=== PATIENT | female | born 1965 | race Caucasian/White ===

== ENCOUNTER 2021-11-13 13:12 | Emergency (ER) | payer MEDICAID, SELFPAY ==
[~2021-11-13] VITALS: Ht 165.1 cm; Wt 66.7 kg
[2021-11-13 13:12] VITALS: BP_SYST 134
--- NOTE | 2021-11-13 13:20 | NUR ---
Patient triaged and placed in waiting room. VSS and patient appears in no acute distress at this time. Accompanied by SELF, awaiting available bed, and MD notified of need for MSE.
--- NOTE | 2021-11-13 14:25 | NUR ---
DR ANNE OUT TO TRIAGE ROOM TO EVALUATE PT.
[2021-11-13] MEDS ORDERED: IBUP-1969 PO (15:33)
[2021-11-13] MEDS ORDERED: ACET325T53 PO (15:33)
--- NOTE | 2021-11-13 17:01 | NUR ---
SLING PLACED ORDERED
--- NOTE | 2021-11-13 17:10 | NUR ---
DR ANNE OUT TO TRIAGE ROOM TO SPEAK WITH PT RE: [id number]
--- NOTE | 2021-11-13 17:32 | NUR ---
Patient given written and verbal discharge instructions and verbalizes understanding. ER MD discussed with patient the results and treatment provided. Patient in stable condition. ID arm band removed. Rx of TYLENOL AND MOTRIN given. Patient educated on pain management and to follow up with PMD. Pain Scale 0/10. Opportunity for questions provided and answered. Medication side effect fact sheet provided.
== END 2021-11-13 17:32 | disposition home or self-care (01) ==
LOC: SED 13:12
DX: M25.511 Pain in right shoulder (principal)
CPT/HCPCS: 73030; 73060-TC; 99284